=== PATIENT | female | born 1960 | race Caucasian/White ===

== ENCOUNTER → 2017-10-12 | Outpatient (CLI) | payer OTHER ==
[~2017-10-12] MED LIST: CYM/30 PO; DIPH25CA65 PO; DORZ1SOL6 OPB; FLUT0.15 NAE; FURO-85 PO; OXGN; POTA10TA32 PO; SIMV40TA2 PO; SYMIN160 INH; TIOTCAP INH; ZNTT/150 PO
--- NOTE | 2017-10-12 10:12 | DIAGNOSTIC IMAGING REPORT ---
(CHEST) THORAX WITHOUT CLINICAL HISTORY: J44.9 COPD, [id number] Solitary pulmonary [id number] groundglass right lower lobe pulmonary nodule COMPARISON STUDY: 07/13/2016, 12/17/2015 CT DOSE: 256.90 mGycm TECHNIQUE: CT of the thorax was performed from the thoracic inlet to the lung bases. Images are reviewed in the axial, sagittal, and coronal planes. IV contrast was not administered for this examination. A dose lowering technique was utilized adhering to the principles of ALARA. FINDINGS: Thyroid: Imaged portions of the thyroid gland are normal in appearance. Thoracic aorta: The thoracic aorta is normal in course and caliber, noting standard 3 vessel arch anatomy. Heart: The heart is normal in size and configuration, without pericardial effusion. Lungs and pleural spaces: There is pulmonary emphysema. The study is mildly degraded due to motion artifact. There is no focal pulmonary consolidation. There is minimal distortion involving the superior segment of the right lower lobe medially. The associated groundglass/nodular component remains unchanged from June 2016, but improved when compared with November 2015 Mediastinum: There is no mediastinal lymphadenopathy. Angeli: There is no evidence of pathologic hilar adenopathy given the limitations of a noncontrast study Axilla: There is no evidence of pathologic axillary lymphadenopathy Upper abdomen: Partially visualized upper abdominal viscera is within normal limits. Skeletal structures: There are mild mid thoracic compression deformities. IMPRESSION: 1. The study is mildly compromised secondary to patient motion artifact 2. Emphysema 3. No evidence of pathologic adenopathy 4. Stable area of distortion within the superior segment of the right lower lobe. The stability when compared the prior June 2016 study, and the improvement when compared the prior November 2015 study, strongly favor postinflammatory scarring Electronically signed by: Simón Negrete M.D. 10/12/2017 10:11 AM Dictated Date/Time: 10/12/2017 10:05 AM
== END | disposition home or self-care (01) ==
LOC: C.CTS 09:48
PROVIDERS: ATTEND Surgery
DX: J44.9 Chronic obstructive pulmonary disease, unspecified (principal); R91.1 Solitary pulmonary nodule; R91.8 Other nonspecific abnormal finding of lung field